=== PATIENT | female | born 1980 | race Caucasian/White ===

== ENCOUNTER 2019-08-27 09:11 | Outpatient (REF) | payer OTHER, SELFPAY ==
[2019-08-27 22:00] LABS: ESR 7 mm/hr (0-20)
[2019-08-31 11:33] LABS: Cyclic Citrullinated Peptide <2.5 U/mL (<5.0)
[2019-08-31 15:00] LABS: ANA Interpretation Positive (Negative); ANA Titer Pattern 1:80 Speckled
== END 2019-08-27 09:31 ==
LOC: NCHCN 09:11
PROVIDERS: PCP Nurse Practitioner Family; Visit Provider Nurse Practitioner Family
DX: M79.646 Pain in unspecified finger(s) (principal); J34.89 Other specified disorders of nose and nasal sinuses
CPT/HCPCS: 85652; 86200; 86038; 86140; 86431

== ENCOUNTER 2020-09-14 22:08 | Outpatient (REF) | payer OTHER, SELFPAY | END 2020-09-14 22:09 | disposition home or self-care (01) | LOC: NCHCN 22:08 | PROVIDERS: PCP Nurse Practitioner Family; Visit Provider Nurse Practitioner Community Health | DX: R30.0 Dysuria (principal) | CPT/HCPCS: 87077; 87086; 87186 ==

== ENCOUNTER 2022-12-06 08:39 | Outpatient (REF) | payer OTHER, SELFPAY ==
--- OUTSIDE RECORDS SUMMARY | 2022-12-06 08:45 | XMS_ITS | CCD ---
Author Name Unknown Address [address] [place] [address] [phone] Organization Unknown Address [address] [place] [address] [phone] Care Team Providers Care Fountain Worker Name Role Phone RICO MCRAE MD Attending Physician [phone] Vital Signs Unknown or Not Available. Allergies Unknown or Not Available. Procedures Unknown or Not Available. History of Immunizations Unknown or Not Available. Problems Unknown or Not Available. Results Unknown or Not Available. Active Medications Unknown or Not Available. Medications Administered During Visit Unknown or Not Available. Encounters Encounter Diagnosis Diagnosis Code Start Date Sprain finger, metacarpophalangeal joint, nonspe cific [id number] 02/09/2021 Social History Smoking Status Code Start Date End Date Former smoker [id number] Patient Decision Aids Unknown or Not Available. Discharge Instructions You were admitted to [facility] on 02/09/2021 13:04 with a principal diagnosis of Sprain of metacarpophalangeal joint of left index finger, initial encounter You were discharged from [facility] on 02/09/2021 13:04 Should you have any questions prior to discharge, please contact a member of your healthcare team. If you have left the hospital and have any questions, please contact your primary care physician. Chief Complaint and Reason For Visit Unknown or Not Available. Function Status Unknown or Not Available. Plan of Care Unknown or Not Available. Referral/Transition of Care Unknown or Not Available.
[2022-12-06 15:26] LABS: HCT 43.2 % (36.0-46.0); HGB 14.3 g/dL (11.2-15.7); MCH 29.5 pg (27.0-33.0); MCHC 33.1 % (32.0-36.0); MCV 89 fL (80-95); MPV 11.4 fL (8.0-11.0); Platelet Count 225 10^3/uL (130-400); RBC 4.85 10^6/uL (3.93-5.22); RDW 12.3 % (11.7-14.6); RDW-SD 40.3 fL
[2022-12-06 15:44] LABS: ALT 35 U/L (14-59); AST 22 U/L (15-37); Albumin 3.8 g/dL (3.4-5.0); Alkaline Phosphatase 69 U/L (46-116); Anion Gap 5.4 mmol/L (3-11); BUN 26 mg/dL (7-18); Bilirubin, Total 0.3 mg/dL (0.2-1.0); CO2 29.6 mmol/L (21.0-32.0); CREATININE 0.9 mg/dL (0.55-1.02); Calcium 9.1 mg/dL (8.5-10.1); Calculated LDL 71 mg/dL (<100); Chloride 105 mmol/L (98-107); Cholesterol 160 mg/dL (<200); Estimated GFR 81.86 (mL/min/1.73m2); Glucose 105 mg/dL (74-106); HDL Cholesterol 77 mg/dL (40-60); Potassium 4.9 mmol/L (3.5-5.1); Sodium 140 mmol/L (136-145); TSH 1.58 uIU/mL (0.36-3.74); Total Protein 7.3 g/dL (6.4-8.2); Triglyceride 60 mg/dL (<150)
[2022-12-07 09:59] LABS: HIV-1/2 Ag & Ab Screen Negative (Negative)
[2022-12-07 10:09] LABS: Hepatitis C Ab w Rflx HCV PCR Negative (Negative)
== END 2022-12-06 08:40 | disposition home or self-care (01) ==
LOC: NCHCN 08:39
PROVIDERS: PCP Nurse Practitioner Family; Visit Provider Nurse Practitioner Family
DX: Z00.00 Encounter for general adult medical examination without abnormal findings (principal); K21.9 Gastro-esophageal reflux disease without esophagitis; E66.9 Obesity, unspecified; Z13.220 Encounter for screening for lipoid disorders; Z13.29 Encounter for screening for other suspected endocrine disorder; Z11.4 Encounter for screening for human immunodeficiency virus [HIV]; Z11.59 Encounter for screening for other viral diseases
CPT/HCPCS: 80053; 80061; 85027; 86803; 87389; 84443

== ENCOUNTER 2023-08-21 08:46 | Outpatient (REF) | payer OTHER, SELFPAY ==
[2023-08-21 14:26] LABS: Anion Gap 6.6 mmol/L (3-11); BUN 20 mg/dL (7-18); CO2 30.4 mmol/L (21.0-32.0); Calcium 9.5 mg/dL (8.5-10.1); Chloride 104 mmol/L (98-107); Estimated GFR 71.69 (mL/min/1.73m2); Glucose 91 mg/dL (74-106); Potassium 4.2 mmol/L (3.5-5.1); Sodium 141 mmol/L (136-145)
== END 2023-08-21 08:47 | disposition home or self-care (01) ==
LOC: NCHCN 08:46
PROVIDERS: PCP Nurse Practitioner Family; Visit Provider Physician Assistant
DX: R30.0 Dysuria (principal); R80.9 Proteinuria, unspecified; B96.89 Other specified bacterial agents as the cause of diseases classified elsewhere
CPT/HCPCS: 80048; 87077; 87086; 87186